=== PATIENT | female | born 1970 | race Two or more races ===

== ENCOUNTER 2016-03-14 10:24 | Emergency (ER) | payer SELFPAY ==
[2016-03-14] MEDS ORDERED: IBUPROFEN 800 MG TABLET PO ONE (10:43)
--- NOTE | 2016-03-14 10:43 | ER Document Report ---
ED Medical Screen (RME) - General Stated Complaint: ABDOMINAL/BREAST PAIN Time seen by provider: 10:39 Mode of Arrival: Ambulatory Information source: Patient Notes: 45-year-old female presents to ED for left flank area 4 days and right lateral breast with a concerning lump on the breast a week. Last menstrual period 02/04. Patient states she is constipated states this morning she had some hard round balls. She also has burning and pain with urination. I have greeted and performed a rapid initial assessment of this patient. A comprehensive ED assessment and evaluation of the patient, analysis of test results and completion of medical decision making process will be conducted by an additional ED providers.
[2016-03-14 11:19] LABS: ABSOLUTE EOSINOPHILS # (AUTO) 0.3 10^3/uL (0.0-0.6); ABSOLUTE LYMPHOCYTES (AUTO) 1.5 10^3/uL (0.5-4.7); ABSOLUTE MONOCYTES (AUTO) 0.3 10^3/uL (0.1-1.4); ABSOLUTE NEUT (AUTO) 5.9 10^3/uL (1.7-8.2); BASOPHILS % (AUTO) 0.4 % (0-2); EOSINOPHILS % (AUTO) 3.3 % (0-6); HEMATOCRIT 33.4 % (36.0-47.0); HEMOGLOBIN 10.6 g/dL (12.0-15.5); HGB HCT DIFFERENCE -1.6; LYMPHOCYTES % (AUTO) 18.4 % (13-45); MEAN CORPUSCULAR HEMOGLOBIN 22.9 pg (27.0-33.4); MEAN CORPUSCULAR HGB CONC 31.6 g/dL (32.0-36.0); MEAN CORPUSCULAR VOLUME 72 fl (80-97); MONOCYTES % (AUTO) 3.5 % (3-13); RED BLOOD COUNT 4.61 10^6/uL (3.72-5.28); SEGMENTED NEUTROPHILS % (AUTO) 74.4 % (42-78); WHITE BLOOD COUNT 7.9 10^3/uL (4.0-10.5)
[2016-03-14 11:20] LABS: APPEARANCE,URINE CLOUDY; BILIRUBIN,URINE NEGATIVE (NEGATIVE); GLUCOSE, URINE 50 mg/dL (NEGATIVE); KETONES,URINE NEGATIVE (NEGATIVE); LEUKOCYTE ESTERASE,URINE TRACE (NEGATIVE); NITRITE,URINE NEGATIVE (NEGATIVE); PROTEIN,URINE NEGATIVE (NEGATIVE); URINE SPECIFIC GRAVITY 1.013; UROBILINOGEN,URINE NEGATIVE mg/dL (<2.0)
[2016-03-14 11:36] LABS: ALANINE AMINOTRANSFERASE 27 U/L (9-52); ALKALINE PHOSPHATASE 124 U/L (38-126); ANION GAP 12 (5-19); ASPARTATE AMINO TRANSFERASE 17 U/L (14-36); BILIRUBIN,TOTAL 0.4 mg/dL (0.2-1.3); BLOOD UREA NITROGEN 13 mg/dL (7-20); CALCIUM 9.5 mg/dL (8.4-10.2); CARBON DIOXIDE 24 mmol/L (22-30); CHLORIDE 102 mmol/L (98-107); CREATININE RESULT 0.73 mg/dL (0.52-1.25); GLUCOSE 190 mg/dL (75-110); LIPASE 142.5 U/L (23-300); POTASSIUM 4.1 mmol/L (3.6-5.0); SODIUM 138.2 mmol/L (137-145); TOTAL PROTEIN 7.7 g/dL (6.3-8.2)
--- NOTE | 2016-03-14 12:21 | ER Document Report ---
ED General <ELA GIBBONS - Last Filed: 03/14/16 12:21> - General Mode of Arrival: Ambulatory Information source: Patient, Relative - daughter TRAVEL OUTSIDE OF THE [place] IN LAST 30 DAYS: No - HPI Patient complains to provider of: Right Breast Lump Onset: Last week Onset/Duration: Gradual, Persistent Associated symptoms: Other - Abdominal pain, constipation, urinary burning <FRANKO NAM - Last Filed: 03/14/16 12:42> - General Chief Complaint: Abdominal Pain Stated Complaint: ABDOMINAL/BREAST PAIN Notes: Patient is a 45-year-old female presenting to the emergency department concerned of left side abdominal pain onset yesterday. Patient only speaks Moldovan, so patient's daughter translates. Patient's daughter is fluent in both Icelandic and [place]ovan. Patient's daughter states that the patient is constipated. Patient also complains of a lump in her right breast that is somewhat tender. Patient noticed this lump approximately one week ago. Patient also mentions that she is experiencing some burning with urination. Patient has a history of diabetes that is controlled with medication as well as a cardiac condition that she was supposed to be worked up for, but neither the patient nor the daughter know exactly what the condition was. (FRANKO NAM) - Related Data Allergies/Adverse Reactions: No Known Allergies Allergy (Verified 03/14/16 10:39) Past Medical History - General Information source: Patient - Social History Smoking Status: Unknown if Ever Smoked Chew tobacco use (# tins/day): No Frequency of alcohol use: None Drug Abuse: None Lives with: Family Family History: Reviewed & Not Pertinent Patient has suicidal ideation: No Patient has homicidal ideation: No Endocrine Medical History: Reports: Hx Diabetes Mellitus Type 2 - Controlled with medication Past Surgical History: Reports: Hx Cholecystectomy <FRANKO NAM - Last Filed: 03/14/16 12:42> Review of Systems - Review of Systems Constitutional: No symptoms reported EENT: No symptoms reported Cardiovascular: No symptoms reported Respiratory: No symptoms reported Gastrointestinal: See HPI, Abdominal pain, Constipation Genitourinary: See HPI, Burning, Dysuria Musculoskeletal: See HPI, Other - Right breast lump Skin: No symptoms reported Hematologic/Lymphatic: No symptoms reported Neurological/Psychological: No symptoms reported -: Yes All other systems reviewed and negative <FRANKO NAM - Last Filed: 03/14/16 12:42> Physical Exam <EAL GIBBONS - Last Filed: 03/14/16 12:21> - General General appearance: Appears well, Alert - HEENT Head: Normocephalic, Atraumatic Eyes: Normal Pupils: PERRL - Respiratory Respiratory status: No respiratory distress Breath sounds: Normal - Cardiovascular Rhythm: Regular - Abdominal Inspection: Obese Bowel sounds: Normal Tenderness: Tender - Abdomen itself is non-tender, but inguinal muscles are very tender to palpation. L>R. - Back Back: Normal - Extremities General upper extremity: Normal inspection General lower extremity: Normal inspection - Neurological Neuro grossly intact: Yes Cognition: Normal Elayne Coma Scale Eye Opening: Spontaneous Elayne Coma Scale Verbal: Oriented [place] Coma Scale Motor: Obeys Commands [place] Coma Scale Total: 15 Speech: Normal - Psychological Associated symptoms: Normal affect, Normal mood - Skin Skin Temperature: Warm Skin Moisture: Dry Skin Color: Normal <FRANKO NAM - Last Filed: 03/14/16 12:42> - Vital signs Vitals: Temp Pulse Resp BP Pulse Ox 98.1 F 70 16 147/85 H 99 03/14/16 10:36 03/14/16 10:36 03/14/16 10:36 03/14/16 10:36 03/14/16 10:36 (ELA GIBBONS) (FRANKO NAM) - Notes Notes: Somewhat large, hard mass on right lateral breast that is mildly tender. No changes to the skin. (FRANKO NAM) Course - Laboratory Result Diagrams: 03/14/16 10:54 03/14/16 10:54 <ELA GIBBONS - Last Filed: 03/14/16 12:21> - Laboratory Result Diagrams: 03/14/16 10:54 03/14/16 10:54 <FRANKO NAM - Last Filed: 03/14/16 12:42> - Vital Signs Vital signs: Temp Pulse Resp BP Pulse Ox 98.1 F 70 16 147/85 H 99 03/14/16 10:36 03/14/16 10:36 03/14/16 10:36 03/14/16 10:36 03/14/16 10:36 (ELA GIBBONS) (FRANKO NAM) - Laboratory Laboratory results interpreted by me: 03/14/16 03/14/16 03/14/16 10:54 10:54 10:54 Hgb 10.6 L Hct 33.4 L MCV 72 L MCH 22.9 L MCHC 31.6 L RDW 18.0 H Glucose 190 H Urine Glucose (UA) 50 H Ur Leukocyte Esterase TRACE H Urine Ascorbic Acid 20 H (ELA GIBBONS) (FRANKO NAM) Discharge <ELA GIBBONS - Last Filed: 03/14/16 12:21> <FRANKO NAM - Last Filed: 03/14/16 12:42> - Discharge Clinical Impression: Mass of right breast Inguinal muscle strain Qualifiers: Encounter type: initial encounter Qualified Code(s): S39.013A - Strain of muscle, fascia and tendon of pelvis, initial encounter Hyperglycemia due to type 2 diabetes mellitus Qualifiers: Diabetes mellitus calender let off operator insulin use: without calender let off operator use Qualified Code(s ): E11.65 - Type 2 diabetes mellitus with hyperglycemia Constipation Qualifiers: Constipation type: unspecified constipation type Qualified Code(s): K59.00 - Constipation, unspecified Additional Instructions: Breast Lumps: There is a lump in your breast. We realize this will worry you. Most breast masses are not cancer. Most breast masses are fibrocystic disease, simple cysts, or fibroadenoma, which are benign. The first step is usually a mammogram or ultrasound of the breast. Your private physician, or a surgeon, can complete the evaluation. Be sure to keep your follow-up appointment. If the lump is malignant, early removal is your best chance of a cure. Constipation: Constipation is a common problem. It is especially likely as you get older. Constipation is a common cause of abdominal pain, but sometimes causes no symptoms at all. Causes of constipation include certain medications, dehydration, diets, inactivity, and low-fiber intake. Rarely, it can be a symptom of underlying disease. The physician has evaluated you for this. Avoid constipation by eating a diet high in fiber, fruits, and vegetables. Drink plenty of liquids. Get regular exercise. If possible, avoid constipating medicines like narcotic pain medication. Some vitamin tablets can cause constipation. Stool softeners may be needed for difficult cases. An excellent stool softener is Konsyl which is available at [employer], and [employer]. Just add a teaspoon to a glass of pineapple or orange juice daily or twice a day if needed. Laxatives are useful for occasional constipation. You should use them only when necessary. Too-frequent use can make your bowels dependent on them. Some over the counter laxatives available without prescription are: Milk of Magnesia, 1-2 tablespoons twice a day Dulcolax, 5 mg pill or 10 mg suppository. Citrate of Magnesia, 4-5 ounces a day for a day or two For acute constipation, Fleet's Enemas and Dulcolax suppositories are helpful. Chronic, prison use of laxatives or enemas is not a good idea. Your bowel may become dependant on them. You do not need to have a bowel movement every day. Many people do fine with a bowel movement every three or four days. You should call your doctor or return for re-evaluation if you pass blood in the stool, or if you develop fever or increasing abdominal pain. Inguinal Strain: You have an inguinal strain, also known as a pulled groin. This injury causes pain where the lower abdominal wall meets the upper leg. The strain can affect several different muscles and tendons. When it occurs during running, the injury usually affects the tendon or upper muscle fibers of the thigh muscles. With weight lifting, it's the lower fibers of the abdominal wall muscles that are most often strained. Running, lifting, squatting, or even walking can cause pain. A strain can take a few weeks to heal. Apply ice packs during the first couple of days following the injury. Antiinflammatory pain medication can help. Avoid lifting, running, jumping, and other activities that provoke pain. No hernia was found. But sometimes a hernia can begin with the same symptoms as a strain of the groin. If you find a lump or bulge in the groin, pain or swelling in the testicle, abdominal cramping, or vomiting, you should return for re-examination. //////////////////////////////////////////////////////////////////////////////// //////////////////////////////////////////////////////////////////////////////// ////////////////// TAKE MIRALAX EVERY DAY AND DRINK PLENTY OF WATER TO RELIEVE CONSTIPATION. LIMIT WALKING TO REST THE LOWER ABDOMINAL WALL MUSCLE STRAIN. FOLLOW UP WITH [facility] THIS WEEK TO EVALUATE YOUR BREAST MASS-- CALL FOR AN APPOINTMENT. FOLLOW UP WITH YOUR MEDICAL DOCTOR IN [place] TO REVIEW YOUR DIABETES MANAGEMENT. RETURN TO THE EMERGENCY ROOM IF ANY NEW OR WORSENING SYMPTOMS. Referrals: [facility] [Provider Group] - Follow up in 3-5 days (Call for an appointment.) Scribe Attestation: 03/14/16 12:27 I personally performed the services described in the documentation, reviewed and edited the documentation which was dictated to the scribe in my presence, and it accurately records my words and actions. (ELA GIBBONS) Scribe Documentation - Scribe Written by Sergio:: Franko Nam 03/14/2016 1221 acting as scribe for :: Alessandra <FRANKO NAM - Last Filed: 03/14/16 12:42>
[2016-03-14 12:36] VITALS: BP 139/81
== END 2016-03-14 12:34 | disposition home or self-care (01) ==
LOC: ER 10:24
DX: N63 Unspecified lump in breast (principal); S39.013A Strain of muscle, fascia and tendon of pelvis, initial encounter; X58.XXXA Exposure to other specified factors, initial encounter; E11.65 Type 2 diabetes mellitus with hyperglycemia; K59.00 Constipation, unspecified; R10.9 Unspecified abdominal pain; E66.9 Obesity, unspecified; R30.0 Dysuria
CPT/HCPCS: 36415; 80053; 81001; 83036; 83690; 85025; 99284